=== PATIENT | male | born 1965 | race Caucasian/White ===

== ENCOUNTER 2024-01-06 01:22 | Day surgery (SDC) | payer BC, SELFPAY ==
[2023-10-16 13:33] VITALS: BMI 29.0
[2023-12-19 12:07] VITALS: BMI 29.0
[2024-01-06 10:10] VITALS: BP 133/93; PULSE 75; RESP 18; TEMP 36.2; O2SAT 100
[2024-01-06] MEDS: LACTATED RINGERS 1,000 ML 150 ML IV CONT (10:24)
[2024-01-06 10:25] LABS: Glucose Point of Care 116 mg/dl (65-105)
--- NOTE | 2024-01-06 10:32 | PM.HPGS ---
History of Present Illness History of Present Illness Consent: Risks, benefits, and alternatives have been discussed and questions answered. Patient agrees to proceed with procedure. Chief complaint: family hx colon cancer Narrative: Justino Yo is a 58 year old male with last colonoscopy 2019, father had colon cancer Review of Systems Review of Systems: All systems reviewed & are unremarkable except as noted in HPI and below PMFSH Past Medical History Medical History (Updated 01/06/24 @ 10:33 by Lit Rubio MD) Depression Family history of colon cancer in father Hypercholesterolemia Hyperlipidemia LDL goal <100 Lumbar pain Surgical History Surgical History History of hernia repair Family History Family History Mother Family history of malignant neoplasm Father Carcinoma of colon Sibling Hypertension Family history of elevated blood lipids Father Carcinoma of colon Mother Carcinoma of colon Other Family history of tuberculosis Social History Social History Smoking status: Never smoker Second hand tobacco smoke exposure: No Alcohol intake: current Alcohol use details: consumes 1 beer weekly Substance use: never Substance use type: does not use Living arrangements: with family Gender identity (if verbalized by the patient): Male Spiritual care concerns: No Meds Home Medications and Allergies Home Medications Medication Instructions Recorded Confirmed Type escitalopram oxalate 10 mg tablet 10 mg PO DAILY #90 tabs 09/05/20 12/19/23 Rx simvastatin 10 mg tablet See Rx Instructions .Route 11/21/20 12/19/23 Rx .COMPLEX #90 tabs metformin 500 mg tablet,extended 500 mg PO DAILY 10/16/23 12/19/23 History release 24 hr Allergies Allergy/AdvReac Type Severity Reaction Status Date / Time hydrocodone AdvReac Mild Nausea Verified 01/06/24 10:09 Vital Signs Vital Signs - 24 hr 01/06/24 10:10 Temperature 97.2 F L Pulse Rate 75 Respiratory Rate 18 Blood Pressure 133/93 H Pulse Oximetry 100 Oxygen Delivery Room Air Exam Const: General: comfortable and no acute distress HENMT: Face/Nose/Sinus: Normal nares present Eyes: General: appearance normal, both eyes and all related structures Neck: Neck: no JVD Resp: Auscultation: clear to auscultation bilaterally Cardio: Rate: regular rate Rhythm: regular rhythm GI: Inspection: non-distended GI Palp: Yes Soft to palpation Skin: General skin exam: normal color Neuro: General: gait normal Speech: normal speech Extrem: General: normal to inspection Psych: Mental Status: mental status grossly normal Assessment and Plan Assessment and plan (1) Family history of colon cancer in father: Code(s): Z80.0 - Family history of malignant neoplasm of digestive organs Status: Acute Assessment and Plan: colonoscopy
--- NOTE | 2024-01-06 11:07 | SUR.OPER ---
CECAL POLYPS NOT RETRIEVED. MADE AWARE.
[2024-01-06 11:12] VITALS: BP 127/78; PULSE 68; RESP 18; O2SAT 100
[2024-01-06 11:22] VITALS: BP 122/86; PULSE 70; RESP 16; O2SAT 100
[2024-01-06 11:32] VITALS: BP 122/87; PULSE 65; RESP 19; O2SAT 100
== END 2024-01-06 11:41 | disposition home or self-care (01) ==
PROVIDERS: PCP Family Medicine; Referring Provider Nurse Practitioner Family; Visit Provider Internal Medicine Gastroenterology
PROC: 0DJD8ZZ Inspection of Lower Intestinal Tract, Via Natural or Artificial Opening Endoscopic (ICD-10-PCS; CPT 45378; principal; 2024-01-06 12:30)
DX: Z12.11 Encounter for screening for malignant neoplasm of colon (principal); D12.2 Benign neoplasm of ascending colon; K64.8 Other hemorrhoids; F32.A Depression, unspecified; E78.00 Pure hypercholesterolemia, unspecified; Z79.84 Long term (current) use of oral hypoglycemic drugs; Z98.890 Other specified postprocedural states; Z80.0 Family history of malignant neoplasm of digestive organs
CPT/HCPCS: 45385; 82948; 88305; J2704; J7120